=== PATIENT | female | born 1970 | race American Indian/Alaskan Native ===

== ENCOUNTER 2016-10-03 13:21 | Emergency (ER) | payer MEDICAID ==
[2016-10-03 14:02] LABS: Basophils % (Auto) 0.7 % (0.0-1.8); Eosinophils % (Auto) 1.5 % (0.0-4.3); Hematocrit 34.6 % (30.3-42.9); Hemoglobin 10.8 gm/dl (10.1-14.3); Mean Corpuscular HGB Conc 31 % (30-34); Mean Corpuscular Volume 81 fl (79-97); Platelet Count 322 K/mm3 (140-440); Red Blood Count 4.26 M/mm3 (3.65-5.03); White Blood Count 8.2 K/mm3 (4.5-11.0)
[2016-10-03 14:04] LABS: Mean Corpuscular Hemoglobin 25 pg (28-32)
--- NOTE | 2016-10-03 14:16 | Emergency Department Report ---
HPI - General Chief Complaint: Psych Time Seen by Provider: 10/03/16 13:38 - HPI HPI: This is a 46-year-old Afro-German female presents to the emergency department via the police with need for a mental health evaluation. The police say that the patient was found walking around nude and confused. The patient herself says that she was sitting on the stairs of her apartment drinking tea when they (the police) came up and slapped the beverage out of her hand and "told me to take off my dress." The patient says that she "pays $500 per month for this apartment" and that it was locked. She then says that one of the police officers "destroyed my room" but then also says that they did not help her to get back inside and just took her in to the hospital. She denies any past medical or psychiatric history but also says "I left all of my information at home." ED Past Medical Hx - Social History Smoking Status: Unknown if ever smoked Substance Use Type: None ED Review of Systems ROS: Stated complaint: MH Other details as noted in HPI Comment: Unobtainable due to pts medical conditions Physical Exam - Physical Exam Vital Signs: Vital Signs 10/03/16 13:46 Temperature 98.2 F Pulse Rate 110 H Respiratory 20 Rate Blood Pressure 127/77 O2 Sat by Pulse 97 Oximetry Physical Exam: GENERAL: The patient is well-developed well-nourished. HEENT: Normocephalic. Atraumatic. Extraocular motions are intact. Patient has moist mucous membranes. Pupils equal reactive to light bilaterally. NECK: Supple. Trachea is midline. CHEST/LUNGS: Clear to auscultation. There is no respiratory distress noted. HEART/CARDIOVASCULAR: Regular. There is no tachycardia. There is no gallop rub or murmur. ABDOMEN: Abdomen is soft, nontender. Patient has normal bowel sounds. There is no abdominal distention. SKIN: There is no rash. There is no edema. There is no diaphoresis. NEURO: The patient is awake, alert, and oriented. The patient is cooperative. The patient has no focal neurologic deficits. The patient has normal speech. MUSCULOSKELETAL: There is no tenderness or deformity. There is no limitation range of motion. There is no evidence of acute injury. ED Course Vital Signs 10/03/16 13:46 Temperature 98.2 F Pulse Rate 110 H Respiratory 20 Rate Blood Pressure 127/77 O2 Sat by Pulse 97 Oximetry ED Medical Decision Making - Lab Data Result diagrams: 10/03/16 13:47 10/03/16 13:47 - Medical Decision Making This is a 46-year-old female presents to the emergency Department via PD after she was found walking somewhat wandering around outside naked. While the patient is currently calm and cooperative, she arrived to the emergency department and required security. She was screaming at the top of her lungs and yelling things out and was noncompliant. The patient says that she was minding her business drinking tea when the police came and slapped it out of her hand and told her to take off her dress. She also claims that they did not help her get into her locked apartment but then also says that they ransacked her room. The patient didn't display some tangential thoughts and some delusions. Patient will be made a 1013 secondary to the fact that she appears to have acute psychosis and will be unable to take care of herself and complete ADLs. Patient's labs are unremarkable including negative blood alcohol and urine drug screen. There is no signs of infection in the blood and urine. Patient is not . No left to light abnormalities, renal insufficiency or glucose abnormalities. Vital signs stable throughout her ED course. Patient appears medically cleared for psychiatric placement and the crisis therapist been contacted to assist. - Differential Diagnosis schizophrenia, schizoaffective, bipolar disorder, substance abuse Critical Care Time: No Critical care attestation.: If time is entered above; I have spent that time in minutes in the direct care of this critically ill patient, excluding procedure time. ED Disposition Clinical Impression: Delusions Psychosis Qualifiers: Psychosis type: unspecified psychosis type Qualified Code(s): F29 - Unspecified psychosis not due to a substance or known physiological condition Disposition: DC/TX PSY HOSP/PSY UNIT Is pt being admited?: No Condition: Stable Referrals: PRIMARY CARE [Primary Care Provider] - 3-5 Days Time of Disposition: 15:38
[2016-10-03 14:26] LABS: Alanine Aminotransferase 10 units/L (7-56); Albumin 3.8 g/dL (3.9-5); Alkaline Phosphatase 70 units/L (35-129); Anion Gap 17 mmol/L; Bilirubin,Total 0.3 mg/dL (0.1-1.2); Blood Urea Nitrogen 10 mg/dL (7-17); Calcium 8.7 mg/dL (8.4-10.2); Carbon Dioxide 21 mmol/L (22-30); Chloride 99.7 mmol/L (98-107); Glucose 165 mg/dL (65-100); Sodium 134 mmol/L (137-145); Total Protein 7.6 g/dL (6.3-8.2)
[2016-10-03 14:55] LABS: Urine Drugs of Abuse Note Disclamer
[2016-10-03 15:18] LABS: Bacteria,Urine 1+ /HPF (Negative); Bilirubin,Urine NEG (Negative); Blood,Urine NEG (Negative); Ketones,Urine NEG (Negative); Leukocyte Esterase,Urine SM (Negative); Mucus,Urine 3+ /HPF; Nitrite,Urine NEG (Negative); Urobilinogen,Urine < 2.0 mg/dL (<2.0)
--- NOTE | 2016-10-04 19:06 | Consultation ---
History of Present Illness - Reason for Consult Consult date: 10/04/16 Reason for consult: psychiatric evaluation - Chief Complaint Chief complaint: "I'm black, fat, and crazy." Ms. Camejo is a 46 year old black female presenting to the ER for bizarre behavior. She was yelling and running nude in the street. She admitted doing this stating someone at her house mad her angry. She was responding to internal stimuli throughout the interview. She reports being in mental health treatment for schizophrenia and has a therapist. She knows she takes haldol. She was unable to provide additional history. Medications and Allergies Allergies Allergy/AdvReac Type Severity Reaction Status Date / Time No Known Allergies Allergy Unverified 10/03/16 14:14 Home Medications Medication Instructions Recorded Confirmed Last Taken Type No Known Home Medications [No 10/03/16 10/03/16 Unknown History Reported Home Medications] Past psychiatric history - Past Medical History Past Medical History: other (unk) - past Psychiatric treatment and history Psych: Schizophrenia - Social History Social history: single (lives with others), alcohol abuse (denies), IV drug use (denies substance use) Mental Status Exam - Vital signs Last Vital Signs Temp 98.2 F 10/04/16 07:20 Pulse 82 10/04/16 07:20 Resp 18 10/04/16 07:53 BP 163/99 10/04/16 07:20 Pulse Ox 98 10/04/16 07:53 - Exam Orientation: time, place, person Affect: agitated Mood: other (smiling) Thought content: other (denies SI, HI) Thought Process: Tangential, Disorganized Perceptions: other (responding to internal stimuli) Speech: pressured Concentration: distractible Motor activity: normal Level of consciousness: alert Interaction: irritable Results Result Diagrams: 10/03/16 13:47 10/03/16 13:47 All other labs normal. Assessment and Plan Assessment and plan: Impression: Schizophrenia, paranoid type Psychosis Compliance with treatment is unknown Plan: 1013 and transfer to inpatient psychiatric facility Start Haldol 5mg hs for psychosis Obtain collateral from her outpatient therapist/p[employer] - Psychiatric problem (1) Schizophrenia, paranoid type Current Visit: Yes Status: Acute
[2016-10-04] MEDS: HALDOL PO SCH (22:40)
--- NOTE | 2016-10-05 09:46 | Progress Note ---
Subjective - Reason for Consult Consult date: 10/05/16 Reason for consult: Psychiatry Follow-up - Chief Complaint Chief complaint: "I was minding my own business" Ms. Camejo is a 46 year old black female presenting to the ER for bizarre behavior. She was yelling and running nude in the street. Today patient was calm , cooperative, disheveled, disorganized with a circumstantial thought process. Patient had a strong body order. She admits to washing up early this morning. Patient was adamant that she did nothing at her apartment. She could not recall any incident that would have prompted the police to arrive to her residence. She states that she was just sitting on the stairs and drinking tea. She denies being naked during this ordeal. She states that she sleeps pretty well, but only enjoy eating popcorn, chips, and drinking tea. Patient is visibly obese. She state that her payee is "Xiao" who pays her rent of 500. She admit to being diagnosed with Paranoid Schizophrenia, but stated that she does not take any medications. She feel that [facility] is "screwing" up her money and medical insurance. She denies SI/HI's or AVH's at this time. Mental Status Exam - Vital signs Last Vital Signs Temp 98.9 F 10/05/16 01:28 Pulse 82 10/05/16 01:28 Resp 18 10/05/16 01:30 BP 134/79 10/05/16 01:28 Pulse Ox 98 10/05/16 01:30 - Exam Orientation: time, place, person Affect: flat Mood: calm Thought content: paranoia Thought Process: Circumstantial Perceptions: none (Responds to internal stimuli) Speech: normal rate and pattern Concentration: focused Motor activity: other (Ambulatory) Level of consciousness: alert Memory: Intact Sleep Symptoms: None Interaction: cooperative Assessment and Plan Impression: Hx of paranoid schizophrenia. Today patient was calm, cooperative, disheveled, disorganized with a circumstantial thought process. Patient had a strong body order. Patient denies SI/HI's or AVH's at this time. Recommendation/Plan: Continue 1013 and transfer to inpatient psychiatric facility. Continue Haldol 5mg PO hs for psychosis. Obtain collateral from her outpatient therapist/[facility]. Patient may receive monthly haldol injections.
--- NOTE | 2016-10-05 10:50 | Emergency Department Report ---
Blank Doc - Documentation Documentation: Patient reevaluated. She is resting comfortably back in room 12, sleeping but easily arousable. Vital signs stable. Patient is currently a 1013 for some psychosis and delusions and awaiting placement.
[2016-10-05 21:09] VITALS: BP 161/91
[2016-10-05] MEDS: HALDOL PO SCH (23:00)
== END 2016-10-06 00:25 ==
LOC: EEVIPCON 13:21 → ED 13:21
DX: F22 Delusional disorders (principal); F29 Unspecified psychosis not due to a substance or known physiological condition
CPT/HCPCS: 36415; 80053; 80307; 81001; 84443; 84703; 85025; 99285; G0480; 80320